=== PATIENT | male | born 2000 | race African-American/Black ===

== ENCOUNTER 2020-09-29 15:10 | Emergency (ER) | payer BC ==
[~2020-09-29] VITALS: Ht 182.9 cm; Wt 72.6 kg
[2020-09-29] MEDS ORDERED: FLEXERIL PO (17:28)
[2020-09-29] MEDS ORDERED: NAPROSYN500 MG PO (17:28)
[2020-09-29 17:34] VITALS: BP 134/72
== END 2020-09-29 17:34 | disposition home or self-care (01) ==
LOC: M.ERS 15:10
DX: S39.012A Strain of muscle, fascia and tendon of lower back, initial encounter (principal); S16.1XXA Strain of muscle, fascia and tendon at neck level, initial encounter; X50.1XXA Overexertion from prolonged static or awkward postures, initial encounter; Y93.67 Activity, basketball; Y92.89 Other specified places as the place of occurrence of the external cause; Y99.8 Other external cause status

== ENCOUNTER 2020-12-22 14:14 | Emergency (ER) | payer BC ==
[~2020-12-22] VITALS: Ht 180.3 cm; Wt 104.3 kg
[~2020-12-22 14:14] MED LIST: FLEXERIL PO; NAPROSYN500 MG PO
[2020-12-22 16:41] LABS: ABSOLUTE EOSINOPHILS 0.2 thou/uL (0.0-0.7); ABSOLUTE LYMPHOCYTES 1.7 thou/uL (0.8-5.3); ABSOLUTE MONOCYTES 0.5 thou/uL (0.0-1.2); ABSOLUTE NEUTROPHILS 2.3 thou/uL (1.6-8.1); BASOPHILS 0.6 %; HEMATOCRIT 42.8 % (42.0-52.0); HEMOGLOBIN 14.1 gm/dL (14.0-18.0); LYMPHOCYTES 36.1 %; MCHC 32.9 g/dL (28.0-37.0); MONOCYTES 9.7 %; MPV 6.6 fl. (7.2-11.1); NUCLEATED RBCS 0 /100WBC; PLATELET COUNT* 273 thou/uL (150-400); POLYS 49.6 %; RBC 5.03 mil/uL (4.50-6.00); RDW-CV 13.7 % (10.5-14.5); WBC 4.7 thou/uL (4.0-11.0)
[2020-12-22 17:00] LABS: CALCIUM 8.6 mg/dL (8.5-10.1); CREATININE 1.5 mg/dL (0.6-1.3); POTASSIUM 3.9 mmol/L (3.5-5.1)
[2020-12-22 17:04] LABS: TOTAL BILIRUBIN 0.4 mg/dL (<0.1-1.0); TOTAL PROTEIN 7.3 g/dL (6.4-8.2)
[2020-12-22] MEDS ORDERED: OMEPRAZOLE 20 M20 M1 PO (18:45)
[2020-12-22] MEDS ORDERED: ZOFRAN ODT4 MG PO (18:45)
[2020-12-22 19:08] VITALS: BP 105/67
--- NOTE | 2020-12-23 09:29 | EKG ---
[place] [address] ELECTROCARDIOGRAM REPORT Name: HOLLAND VILCHIS II Room: [facility]#: [id number] Admission: 12/22/20 Attend Phys: Discharge: 12/22/20 Date of : 89 Date of Service: 12/22/20 1627 Report #: [id number] THIS REPORT FOR: //name// [facility] ED Test Date: 2020-12-22 Test Time: 16:27:55 Pat Name: HOLLAND VILCHIS Department: Room: Gender: Director Of Housing: : 2000 Requested By: Era Mcdonnell Order Number: [id number] MD: Jose Enrique Jaimes Measurements Intervals [place] Rate: 83 P: 31 IA: 181 QRS: 30 QRSD: 75 T: 11 QT: 341 QTc: 401 Interpretive Statements Sinus rhythm Probable anteroseptal infarct, old No previous ECG available for comparison Electronically Signed On 12-23-2020 9:29:16 CDT by Jose Enrique Jaimes [email or web address] <ELECTRONICALLY SIGNED> By: Joanne Jaimes MD, [facility] 12/23/20928 26 26 Joanne Jaimes MD, [facility] /EPI
== END 2020-12-22 19:09 | disposition home or self-care (01) ==
LOC: M.ERS 14:14
PROVIDERS: Nurse Practitioner Family
DX: K21.9 Gastro-esophageal reflux disease without esophagitis (principal); Z20.822 Contact with and (suspected) exposure to COVID-19; J45.909 Unspecified asthma, uncomplicated

== ENCOUNTER 2021-04-24 15:04 | Emergency (ER) | payer BC ==
[~2021-04-24] VITALS: Ht 180.3 cm; Wt 99.8 kg
[~2021-04-24 15:04] MED LIST changes: +OMEPRAZOLE 20 M20 M1 PO; +ZOFRAN ODT4 MG PO
[2021-04-24 16:13] VITALS: BP 117/78
== END 2021-04-24 16:13 | disposition home or self-care (01) ==
LOC: M.ERS 15:04
DX: J02.9 Acute pharyngitis, unspecified (principal); Z20.822 Contact with and (suspected) exposure to COVID-19; K21.9 Gastro-esophageal reflux disease without esophagitis; J45.909 Unspecified asthma, uncomplicated